=== PATIENT | female | born 1950 | race Caucasian/White ===

== ENCOUNTER 2019-02-11 10:20 | Inpatient (IN) | payer MEDICARE, SELFPAY ==
[2019-01-28 12:44] VITALS: BMI 29.0
[2019-02-11] VITALS (18 sets, daily range): BP systolic 105–145; BP diastolic 50–77; PULSE 62–82; RESP 9–17; TEMP 36.1–36.9; O2SAT 90–100; BMI 29.0
--- NOTE | 2019-02-11 | DI.RAD.S_ITS ---
PROCEDURE: XR LUMBAR SPINE 2-3V INDICATIONS: L4-5,5-S1 TLIF TECHNIQUE: 2 views of the lumbar spine were acquired. COMPARISON: None. FINDINGS: Bones: Immediate postoperative evaluation showing transverse pedicle screws and vertical fixation rods spanning the lower lumbosacral spine from L4-S1, with interbody disc cage prosthesis device is seen at L4-5 and L5-S1. Soft tissues: Overlying bowel gas pattern is normal. No suspicious soft tissue calcifications. IMPRESSION: Normal alignment established after L4-S1 bilateral placement of transverse pedicle screws and vertical fixation rods with interbody disc prosthesis device is placed at the intervening 2 levels as described. Dictated by: Catracho Nixon M.D. on 02/11/2019 at 16:26 Approved by: Catracho Nixon M.D. on 02/11/2019 at 16:28
[2019-02-11] MEDS: LACTATED RINGERS 1,000 ML 42 ML IV ×2 (10:30→13:50)
--- NOTE | 2019-02-11 11:29 | PM.PREOP ---
Pre-operative Note Interval Note History & Physical reviewed/Exam performed by Physician: Yes Changes to H&P: No
[2019-02-11] MEDS: CEFAZOLIN 2 GM/100 ML FROZ.PIGGY IV ×2 (12:11→19:59)
[2019-02-11] MEDS: BUPIVACAINE 0.25% W/ EPI 30 ML VIAL INJ (12:45)
[2019-02-11] MEDS: BUPIVACAINE LIPOSOME 266 MG/20 ML VIAL INJ (12:46)
--- NOTE | 2019-02-11 12:50 | SUR.OPER ---
Prone on spine table, head in foam head support, padded chest and pelvic supports, gel pad at knees, lower legs supported by pillows; nipples, genitalia and toes free of pressure, arms secured on foam padded arm boards at <90 degrees abduction. Tape over blanket at thigh secured to table.
--- NOTE | 2019-02-11 16:06 | PM.OP.1 ---
Operative Date/Time/Diagnoses Date of procedure: 02/11/19 Time of procedure: 11:57 Pre-op diagnosis: 1. L4-5, L5-S1 post laminectomy syndrome 2. L4-5, L5-S1 spinal stenosis 3. L4-5, L5-S1 spondylosis with radiculopathy Procedure & Clinicians Procedure: 1. L4-5, L5-S1 Postero-lateral and posterior interbody fusion 2. L4-5, L5-S1 interbody cage placement. 3. L4-5, L5-S1 decompressive laminectomy with bilateral facetecomies 4. L4-5, L5-S1 Posterior segmental instrumentation 5. Morgan of bone marrow from iliac crest 6. Utilization of microsurgical technique and operating microscope Same procedure as scheduled: Yes Indications: Patient has been having chronic back pain and worsening lumbar radiculopathy. Patient failed multiple conservative management with worsening pain weakness and numbness in her lower extremity. Patient has been having difficulty performing activity of daily living. After discussing risks benefits of treatment options, patient elected proceed with surgery. Surgeon: Nithin Nuñez Employee'S Representative: Padmaja Baron Anesthesia Type: General Operative Notes Closure Type: primary Specimen(s): none sent Prosthetic devices, grafts, tissues, transplants, or devices: Globus revolve, Rise cage Applied: catheter Estimated Blood Loss (mL): 50 Blood products transfused: none Procedure in detail: Patient was seen in the preoperative area. Risks and benefits of the surgery was discussed with the patient. Informed consent was obtained from the patient and placed in the chart. Surgical site was marked. Patient was taken to the operative room. General anesthesia was administered. Prophylactic antibiotic was given to the patient less than 30 min before the incision was made. Patient was placed into a prone position on the Vic table. Patient's back was then prepped and draped in the sterile fashion. Time-out was performed at this time. Using AP and lateral C-arm imaging the interval between L4-S1 was identified and marked on patient's back. A 2 inch incision 2 in from midline was made on the right side first. The fascia was incised in line with skin incision. Globus MARS retractors was placed inside the incision and docked onto the L4 and L5 lamina. Using microsurgical technique and operating microscope, a L4 and L5 laminectomy and L4-5 L5-S1 facetectomy was performed using a Kerrison rongeur. During the process of decompression more than 75% of bilateral L4-5 L5-S1 facets were removed in order to decompress the spinal canal and the lateral recess. The L4-5 L5-S1 level was grossly unstable after the decompression was completed and requiring the fusion procedure. Patient has significant amount of epidural scarring from prior laminectomy which was carefully debrided during the process of decompression The disc space at L4-5, L5-S1 was identified. And a total diskectomy was performed at L4-5, L5-S1 level. The endplates were decorticated using a rasp and shaver. The total diskectomy and decortication was performed at L4-5, L5-S1 level in order to to accomplish a L4-5, L5-S1 fusion. The local bone from the laminectomy and facetectomy was saved for local bone grafting. After the total diskectomy and decortication was completed, Bio4 bone graft material was combined with local bone that was harvested earlier. At this time, a separate skin is incision was made over the iliac crest. A Jamshidi needle was inserted into the iliac crest through a separate skin incision. 5 cc of bone marrow aspiration was obtained through the separate skin incision using a Jamshidi needle from the iliac crest. The bone marrow aspiration was combined with local bone and the Bio4 bone grafting material. The bone grafting material was placed into the L4-5, L5-S1 interbody space along with two cages, one expandable cage at each level. The cages were expanded to their maximum height using the torque limiting screwdriver. At this time a mirror image incision was made on the left side. The fascia was incised in line with the skin incision. Globus MARS retractor was inserted and docked onto the L4-5, L5-S1 posterolateral gutter. Using the power drill, posterior-lateral decortication was performed at L4-5, L5-S1 level until bleeding cortical bone was identified. The remaining bone grafting material was placed into the L4-5 L5-S1 posterior lateral gutter he order to accomplish posterolateral fusion at the L4-5 L5-S1 levels. Using the double C-arm technique, pedicle screws were placed into the L4, L5, S1 pedicles bilaterally. This was done by placing the Jamshidi needle into the pedicles, then placing the guidewires over the Jamshidi needle, and finally placing the cannulated screws over the guidewires bilaterally. After the pedicle screws were placed, 2 titanium rods was locked into the heads of the pedicle screws using locking caps and torque limiting screwdriver. Total 6 pedicles screws were placed. After all the hardware was placed, and confirmed with AP and lateral C-arm imaging, the wound was then irrigated with sterile normal saline and packed with Ray-Sommer gauze for 3 min to accomplish hemostasis. After the gauze was removed the deep fascia was closed with #1 Vicryl suture. The subcutaneous layer was closed with 2-0 Vicryl. The skin was closed with skin olivia. Patient tolerated the procedure well. There were no complications. Complications: none Post-operative Condition: stable Disposition: PACU Plan for aftercare: Admit in inpatient hospital
[2019-02-11] MEDS: HYDROMORPHONE 2 MG INJ 0.5 MG IV ×3 (16:20→16:38)
[2019-02-11] MEDS: fentaNYL 100 MCG/2 ML INJ 50 MCG IV ×2 (16:41→16:46)
[2019-02-11] MEDS: LORazepam 2 MG/ML INJ 0.25 MG IV (17:07)
--- NOTE | 2019-02-11 18:00 | SUR.PHASEI ---
Late entry: Pt entered PACU, IV to R arm infiltrated, multiple sticks to get working IV. Pt initially in lots of pain, medicated with fentanyl, dilaudid and ativan. Pt comfortable on discharge to acute care. Transported up on room air and left in stable condition. Dressing to back c/d/i
[2019-02-11] MEDS: HYDROMORPHONE 1 MG INJ 0.5 MG IV (18:03)
[2019-02-11] MEDS: ACETAMINOPHEN 325 MG TABLET 650 MG PO (18:03)
[2019-02-11] MEDS: hydrOXYzine pamoate 25 MG CAPSULE PO (18:03)
[2019-02-11] MEDS: SODIUM CHLORIDE 0.9% 1,000 ML 100 ML IV (18:04)
[2019-02-11] MEDS: OXYCODONE IR 5 MG TABLET 10 MG PO ×2 (18:41→21:54)
[2019-02-11] MEDS: ONDANSETRON 4 MG/2 ML INJ IV (18:42)
[2019-02-11] MEDS: HYDROMORPHONE 0.5 MG INJ IV (19:58)
[2019-02-11] MEDS: LOSARTAN 50 MG TABLET 100 MG PO (20:37)
[2019-02-11] MEDS: CARVEDILOL 12.5 MG TABLET PO (20:38)
[2019-02-11] MEDS: DOCUSATE 100 MG CAPSULE PO (20:38)
[2019-02-11] MEDS: ATORVASTATIN 20 MG TABLET 40 MG PO (20:38)
[2019-02-11] MEDS: SENNOSIDES 8.6 MG TABLET 17.2 MG PO (20:39)
[2019-02-11] MEDS: METFORMIN HCL 500 MG TABLET 1000 MG PO (20:39)
--- NOTE | 2019-02-11 21:33 | PC.NURSE ---
Pt has been uncomfortable since arrival on the unit, have tried numerous positions, best has been supine. She has been able to eat and drink, voiding clear yellow, and is able to sleep. Tolerates ABOs well.
[2019-02-12] MEDS: OXYCODONE IR 5 MG TABLET 10 MG PO ×4 (01:42→12:17)
[2019-02-12 04:32] VITALS: BP 124/85; PULSE 74; RESP 16; TEMP 37.1; O2SAT 96
[2019-02-12] MEDS: CEFAZOLIN 2 GM/100 ML FROZ.PIGGY IV (04:53)
[2019-02-12 06:40] LABS: Hematocrit 32.3 % (36-46); Hemoglobin 10.5 g/dL (12.0-16.0)
--- NOTE | 2019-02-12 07:42 | PM.PNPO.1 ---
Subjective Subjective Date Patient Seen: 02/12/19 Time Patient Seen: 07:42 Interval history: POD 1 s/p L4-S1 TLIF with Dr. Nuñez. Patient's pain was reasonably controlled with oxycodone last night she did know it does make her sleepy. She has a Owen catheter in place. She is diabetic with a blood sugar 112. She has not been up with physical therapy yet. Exam Vital Signs (past 8 hours): - 02/12/19 04:32 Temperature 98.7 F Pulse Rate 74 Respiratory Rate 16 Blood Pressure 124/85 Pulse Oximetry 96 Oxygen Delivery Method Room Air Oxygen Flow Rate 2 Narrative Exam Narrative: Patient lying in bed in no acute distress. She is alert orient x3. Calves are soft, compressible, nontender bilaterally. Sensation intact to light touch throughout bilateral extremities. Catheter in place. Pulses are symmetrical. Objective Labs Result Diagrams: 02/12/19 06:00 Labs: Laboratory Results - last 24 hr 02/12/19 06:00 Hgb 10.5 L Hct 32.3 L Assessment & Plan Post-op Postoperative Procedures: Procedures Operation Date: 02/11/19 12:15 Actual Procedures Side Surgeon p L4-5, L5-S1 Transforaminal lumbar interbody fusion with posterior instrumentation Nithin Nuñez MD Patient will mobilize with physical therapy today. No excessive bending, lifting, or twisting. Cover site dressing will be applied prior to discharge. Owen catheter will be removed this morning. If she has adequate pain control, and voiding on her own, and mobilizing safely she could go home tonight or tomorrow morning.
[2019-02-12 07:45] VITALS: BP 118/80; PULSE 79; RESP 16; TEMP 37.3; O2SAT 95
[2019-02-12] MEDS: AMLODIPINE 5 MG TABLET 10 MG PO (08:29)
[2019-02-12] MEDS: CARVEDILOL 12.5 MG TABLET PO (08:30)
[2019-02-12] MEDS: METFORMIN HCL 500 MG TABLET 1000 MG PO (08:31)
[2019-02-12] MEDS: DOCUSATE 100 MG CAPSULE PO (08:31)
--- NOTE | 2019-02-12 10:00 | PC.NURSE ---
Addendum entered by Jennifer Suazo R.N. 02/12/19 13:55: DC - when spouse arrived, reviewed dc instructions, pt declined any tylenol or vistaril for the trip home, scripts provided, belongings gathered, including cell phone and tablet, clothing, tsf to and escorted to spouse's car by automatic brine mixer operator. Addendum entered by Jennifer Suazo R.N. 02/12/19 13:13: DC/INTEG - removed barrier dsg, parallel stapled incisions, small steristrips intact, no redness or drainage, replaced with coversite dsg, Bety OT in to assist pt with adl/clothing. Addendum entered by Jennifer Suazo R.N. 02/12/19 12:04: PAIN - after seated chair, automatic brine mixer operator assisted back bed, states pain incr to 7 on scale 0/10, discussed medications, dosages, timing and given 0.5mg iv dilaudid with good result, pain 4 on scale 0/10, later ret to chair for lunch. Original Note: AM NOTE - pt is alert, states back discomfort 4-5 on scale 0/10, Phyllis ZURITA in this am and new order rec'd for osorio dc, balloon deflated and dc'd w/o difficulty, pt states hx urine incontinence and pads and underwear provided, log roll to dangle position, barrier dsg w/small qty shadow drainage, denies dizziness and stood and tsf to chair for breakfast, no nausea, 10mg oxycodone given, states hx r leg discomfort resolved after surgery.
--- NOTE | 2019-02-12 10:28 | PT.IIE ---
Current Diagnoses Other spondylosis with radiculopathy, lumbosacral region (02/11/19) Spinal stenosis, lumbar region without neurogenic claudication (02/11/19) Postlaminectomy syndrome, not elsewhere classified (02/11/19) Surgery Performed Operation Date: 02/11/19 12:15 Actual Procedures p L4-5, L5-S1 Transforaminal lumbar interbody fusion with posterior instrumentation - Nithin Nuñez MD Surgical History (Last Updated 01/28/19 @ 13:23 by Janice Rowan RN) History of 2 sections (Acute) History of bilateral total hip arthroplasty (Acute) History of bladder surgery (Acute) Hx of appendectomy (Acute ~1970) Hx of bilateral cataract extraction (Acute) Hx of cardiac catheterization (Acute) Hx of cholecystectomy (Acute) Hx of laminectomy (Acute ~1987) Hx of shoulder surgery (Acute) Hx of tonsillectomy (Acute) Medical History (Last Updated 01/28/19 @ 13:23 by Janice Rowan RN) CAD (coronary artery disease) (Acute 09/11/16) Cardiac arrest (Acute) DDD (degenerative disc disease) (Acute) Diabetes (Acute) Diverticulosis (Acute) Edema (Acute) Former smoker (Acute) H/O: hysterectomy (Acute ~1973) HTN (hypertension) (Acute) Incontinence (Acute) Myocardial infarction (Acute 10/08/16) Osteoarthritis (Acute) Osteoporosis (Acute) Right hip pain (Acute) Severe vertigo (Acute) Sinusitis (Acute) Small bowel obstruction (Acute 03/15/14) Physical Therapy Inpatient Evaluation/Re-Eval M1 PT/OT-IP Prior Functional Status Start: 02/12/19 08:20 Freq: NEEDED Status: Active Protocol: Document 02/12/19 08:55 (Rec: 02/12/19 10:27 [email or web address]) Medical Review Prior Functional Status Medical History Reviewed Yes Diet/Fluid Consistency Regular Communication no deficits noted. Able to make needs known Mobility and Gait Pt states she is independent for home and community mobility. She did use a SPC for long distance walk sometimes. She has difficulty standing/ bending over for a long period of time such as dish washing who required to take intermittent breaks in between. Activities of Daily Living and IADL's independent with ADLs and IADLs. Able to drive. Social History Household Members spouse,family Living Arrangements House Number of Floors (Floors) Two Floors Number of Stairs To Enter/Railing? ramp to enter Home Environment Standard Height Toilet,Tub/ Shower Home Equipment Front Wheel Walker,Four Wheel Walker,Straight Cane,Manual Wheelchair,Raised Toilet Seat w/Armrests,Tub Transfer Bench, Hospital Bed,Grab Bars Near Toilet,Grab Bars In Shower Employment Status Retired Additional Social History Comment Pt lives with her , disabled brother in a2 story house. Her son lives in a trailer on the driveway. Pt primarily stays on main floor. Pt states her is a below knee amputee but very independent without using AD with his prosthetics on. Pt had 2 back surgeries and hip replacement before. M2 PT-IP Current Condition Start: 02/12/19 08:20 Freq: NEEDED Status: Active Protocol: Document 02/12/19 08:55 HH (Rec: 02/12/19 10:27 [email or web address]) Physical Therapy Current Condition Current Condition Evaluation Date 02/12/19 Treatment Diagnosis L4-S1 TLIF, difficulty in walking, R leg pain. Onset Date 02/11/19 Precautions Lumbar Precautions Log Roll,No Twisting,Limit Bending,Lifting Restriction of 10 lbs,Gait Belt above Incisional Area Weight Bearing Status Weight Bearing Status Weight Bear as Tolerated M3 PT-IP Subjective Start: 02/12/19 08:20 Freq: NEEDED Status: Active Protocol: Document 02/12/19 08:55 HH (Rec: 02/12/19 10:27 [email or web address]) Subjective Physical Therapy Visit Type Type Initial Evaluation Visit Start Time 08:55 Visit Stop Time 09:17 Total Visit Minutes 22 Number of HELICOPTER PILOT INSTRUCTOR Visits 0 Physical Therapy Visit Comments Patient Comments I want to go home today. Patient Goals to return home with her . Therapy Pain Assessment Pain When Pain Assessed During Mobility Pain Present Pain Present Pain Reported Location back Scale Used Numeric (1 - 10) Description Acute Pain Management Techniques Timing of Activity with Medications M4 PT-IP Mobility and Gait Start: 02/12/19 08:20 Freq: NEEDED Status: Active Protocol: Document 02/12/19 08:55 HH (Rec: 02/12/19 10:27 [email or web address]) PT-Bed Mobility Assessment Rolling Type of Rolling Log Rolling,Roll to Right Level of Assist Independent Supine to Sit Supine to Sit Independent Sit to Supine Sit to Supine Independent Scooting Scooting to Edge of Bed Independent Scooting Up and Down in Bed Independent PT-Transfer Assessment Sit to and From Stand Sit to and from Stand Standby Assistance,Use of Upper Extremities Equipment Transfer Assistive Device Gait Belt,Front Wheeled Walker Transfers Transfer Destination Bed,Chair,Toilet Transfer Technique Stand Step Pivot Transfer Ability Level of Assist Standby Assistance Comments Mobility Comments Pt was in bed upon assessment. She was able to recall all 3/ 3 post op precautions. She used log roll and sidelying push up to sit EOB independently. She was able to transfers by taking small steps to avoid excessive bending and twisting. She overall appears very safe and cautious. Gait Assessment Gait Gait Assistance Required: Standby Assistance Distance (Feet) 220 Able to Maintain Weight Bearing Status Yes During Gait Assistive Devices Assistive Device Gait Belt,Front Wheeled Walker Orthotic/Prosthetic Devices or Brace: No Gait Deviations General Gait Pattern Within Normal Limits,Decreased Stride Length,Decreased Feet Clearance Factors Limiting Gait Function Factors Limiting Gait Function Decreased Activity Tolerance, Decreased Strength,Limited Range of Motion,Pain Comments Gait Comments Pt amb from room to hallway with FWW SBA. She appears very safe and normal. Reports I currently have no R leg pain at all and i am walking very good and normal. Pt denies weakness or any discomfort. Pt returned to bed and rest in sidelying position with call light within reach post PT. PT-Balance Assessment Sitting Balance and Reactions Static Sitting Balance Ability Normal Dynamic Sitting Balance Ability Normal Standing Balance and Reactions Static Standing Balance Ability Normal Dynamic Standing Balance Ability Normal M5 PT-IP Objective Assessments Start: 02/12/19 08:20 Freq: NEEDED Status: Active Protocol: Document 02/12/19 08:55 (Rec: 02/12/19 10:27 [email or web address]) Orientation Orientation/Cognition Level of Alertness Alert Orientation Name,Age,Birthday,Month,Date, Year,Day of Week,Place, Situation Language Function Ability No Deficits Noted Safety Awareness Understands Safety Issues Memory Description No Deficits Noted Gross Range of Motion Upper Extremity ROM Assessment Within Functional Limits Lower Extremity ROM Assessment Within Functional Limits Strength Upper Extremity Strength Assessment Within Functional Limits Lower Extremity Strength Assessment Within Functional Limits Coordination Assessment Gross Coordination Gross Coordination WNL Sensation Assessment Sensation Gross Sensation WNL Muscle Tone Muscle Tone WNL Yes M6 PT-IP Treatment Start: 02/12/19 08:20 Freq: NEEDED Status: Active Protocol: Document 02/12/19 08:55 (Rec: 02/12/19 10:27 [email or web address]) Physical Therapy Treatment Exercises Exercises Ankle Pumps,Gluteal Sets,Quad Sets,Heel Slides,Straight Leg Raises,Supine Hip Abduction Education Education Provided Precautions,Weight Bearing Status,Post-Op Packet,Safety M7 PT-IP Assessment and Plan Start: 02/12/19 08:20 Freq: NEEDED Status: Active Protocol: Document 02/12/19 08:55 (Rec: 02/12/19 10:27 [email or web address]) PT Summary Assessment and Plan Potential Rehabilitation Potential Excellent Status of Condition at Evaluation Stable Summary Impairments Pain,ROM,Strength,Balance,Bed Mobility,Transfers,Gait, Activity Tolerance Progress Towards Goals Safe For Discharge Assessment Summary Pt is a low complexity whose s /p L4-S1 TLIF since yesterday. Upon assessment, Pt also did not c/o her chronic R leg pain anymore and pt's mobility appears to be at baseline who is well aware of all her post op precautions. She did not need reminders during mobility assessment and able to demonstrates safe transfers and bed mobility techniques possibly due to her previous back surgeries. She also has adequate DME at home and family support. She is safe to be d/c with family assistance at this point. Frequency of Treatment Frequency Of Treatment Discharge Recommendations To Nursing Amount of Assist Needed Standby Assistance Discharge Recommendations PT Discharge Recommendations Home with Assistance
[2019-02-12] MEDS: HYDROMORPHONE 0.5 MG INJ IV (11:15)
[2019-02-12 11:30] VITALS: BP 105/48; PULSE 76; RESP 16; TEMP 37.2; O2SAT 94
--- NOTE | 2019-02-12 13:28 | OT.IP.EVAL ---
Current Diagnoses Other spondylosis with radiculopathy, lumbosacral region (02/11/19) Spinal stenosis, lumbar region without neurogenic claudication (02/11/19) Postlaminectomy syndrome, not elsewhere classified (02/11/19) Surgery Performed Operation Date: 02/11/19 12:15 Actual Procedures p L4-5, L5-S1 Transforaminal lumbar interbody fusion with posterior instrumentation - Nithin Nuñez MD Past Medical History (Last Updated 01/28/19 @ 13:23 by Janice Rowan RN) CAD (coronary artery disease) (Acute 09/11/16) Cardiac arrest (Acute) DDD (degenerative disc disease) (Acute) Diabetes (Acute) Diverticulosis (Acute) Edema (Acute) Former smoker (Acute) H/O: hysterectomy (Acute ~1973) HTN (hypertension) (Acute) Incontinence (Acute) Myocardial infarction (Acute 10/08/16) Osteoarthritis (Acute) Osteoporosis (Acute) Right hip pain (Acute) Severe vertigo (Acute) Sinusitis (Acute) Small bowel obstruction (Acute 03/15/14) Surgical History (Last Updated 01/28/19 @ 13:23 by Janice Rowan RN) History of 2 sections (Acute) History of bilateral total hip arthroplasty (Acute) History of bladder surgery (Acute) Hx of appendectomy (Acute ~1970) Hx of bilateral cataract extraction (Acute) Hx of cardiac catheterization (Acute) Hx of cholecystectomy (Acute) Hx of laminectomy (Acute ~1987) Hx of shoulder surgery (Acute) Hx of tonsillectomy (Acute) Occupational Therapy Inpatient Evaluation/Re-Eval M1 PT/OT-IP Prior Functional Status Start: 02/12/19 08:20 Freq: NEEDED Status: Active Protocol: Document 02/12/19 13:28 EHSAN (Rec: 02/12/19 16:28 EHSAN [id number]) Medical Review Prior Functional Status Medical History Reviewed Yes Diet/Fluid Consistency Regular Communication WNL Mobility and Gait Pt states she is independent with home and community mobility. She did use a SPC for long distance walk at times. She has difficulty standing/ bending over for a long period of time e.g. for dish washing and needed to take intermittent breaks. Activities of Daily Living and IADL's Pt independent with ADLs and IADLs. Able to drive. She and share accounting representative . Prior Functional Level (Other details) Pt's is LE amputee but is independent with prosthesis. Social History Household Members spouse,family Living Arrangements House Number of Floors (Floors) Two Floors Number of Stairs To Enter/Railing? ramp to enter Home Environment Standard Height Toilet,Tub/ Shower,Ramp Home Equipment Front Wheel Walker,Four Wheel Walker,Straight Cane,Manual Wheelchair,Raised Toilet Seat w/Armrests,Tub Transfer Bench, Hand Held Shower,Long Handled Shoe Horn,Ground Operations Superintendent,Hospital Bed ,Grab Bars Near Toilet,Grab Bars In Shower Employment Status Retired Additional Social History Comment Pt lives with her and disabled brother in a 2 story house. Her son lives in a trailer on the driveway. Pt primarily stays on main floor. Pt states her is a below knee amputee but very independent without using AD with his prosthetic on. Pt has had 2 previous back surgeries and B hip replacements. M2 OT-IP Current Condition Start: 02/12/19 16:17 Freq: Status: Active Protocol: Document 02/12/19 13:28 PJ (Rec: 02/12/19 16:28 [facility] [id number]) Occupational Therapy Current Condition Current Condition Evaluation Date 02/12/19 Treatment Diagnosis decr'd self care, functional mobility s/p L4-S1 lami, PLIF Diagnosis Onset Date 02/11/19 Post Operative Precautions Lumbar Precautions Log Roll,No Twisting,Limit Bending,Lifting Restriction of 10 lbs,Gait Belt above Incisional Area M3 OT- IP Subjective and Pain Start: 02/12/19 16:17 Freq: Status: Active Protocol: Document 02/12/19 13:28 PJNathanael (Rec: 02/12/19 16:28 [facility] [id number]) OT- Subjective Occupational Therapy Visit Type Type Initial Evaluation Visit Start Time 13:05 Visit Stop Time 13:28 Total Visit Minutes 23 Occupational Therapy Visit Comments Patient Comments I have had back surgery before and I have all the equipment I need. Patient/Caregiver Goals to go home today OT Pain Assessment Pain When Pain Assessed After Treatment Pain Present Pain Present Pain Reported Location back Intensity 4 Scale Used Numeric (1 - 10) Description Aching,Acute Pain Behaviors Guarding Management Techniques Distraction,Re-positioning, Timing of Activity with Medications M4 OT- IP ADL's Start: 02/12/19 16:17 Freq: Status: Active Protocol: Document 02/12/19 13:28 PJM (Rec: 02/12/19 16:28 [facility] [id number]) OT [id number] General Evaluation Self-Feeding Ability Independent OT ADL-Grooming General Evaluation Grooming Ability Independent Comments OT Grooming Comments standing at sink OT ADL-Oral Care Comments Oral Care Comments standing at sink OT ADL-Dressing General Eval Upper Body Dressing Ability Independent Areas Needing Assistance Pull-Over Shirt,Underpants/ Brief Comments OT Dressing Comments pt states she never wears socks, wears slip on sandals OT ADL-Toileting General Evaluation Toileting Ability Independent Areas Needing Assistance Manage Clothing,Perform Perineal Hygiene OT ADL-Bathing Comments OT Bathing Comments pt declined to shower here; she has necessary bathroom safety equipt and can assist PRN at home; provided eduation re: body mechanics M5 OT- IP IADL's Start: 02/12/19 16:17 Freq: Status: Active Protocol: Document 02/12/19 13:28 PJ (Rec: 02/12/19 16:28 [facility] [id number]) OT-Instrumental Activities of Daily Living Deficits IADL Deficits Identified Deficits Home Safety Awareness Awareness of Need for Assistance at Home Good Awareness Ability to Problem Solve Emergency Able to Problem Solve Situations Medication Management Medication Management No Deficits Identified Money Management Money Management No Deficits Identified Meal Preparation Meal Preparation Caregiver Provides Assist Meal Preparation Comments to assist until pt able Aviation Consultant Aviation Consultant Comments to assist until pt able Driving Driving Comments to assist until pt able M6 OT- IP Functional Cognition Start: 02/12/19 16:17 Freq: Status: Active Protocol: Document 02/12/19 13:28 PJ (Rec: 02/12/19 16:28 [facility] [id number]) Cognitive Factors Limiting Selfcare Function Cognitive Ability Level of Alertness Alert Patient Orientation Name,Age,Birthday,Month,Date, Year,Day of Week,Place, Situation Attention Span Ability Capable of Focused Attention, Capable of Sustained Attention Ability to Follow Commands Able to Follow One Step Commands,Able to Follow Multi- Step Commands Memory Description No Deficits Noted Safety Awareness No Deficits Noted Problem Solving Ability No deficits Noted Executive Function Ability No Deficits Noted Cognitive Comments Cognitive Assessment Comments Pt recalls 3/3 lumbar spine precautions and demonstrates understanding during self care tasks. OT- Vision and Hearing OT- Hearing Assessment OT- Hearing Assessment WFL M7 OT- IP Mobility and Balance Start: 02/12/19 16:17 Freq: Status: Active Protocol: Document 02/12/19 13:28 PJ (Rec: 02/12/19 16:28 [facility] [id number]) OT- Bed Mobility Assessment Rolling Type of Rolling Roll to Left Level of Assistance Independent Supine to Sit Supine to Sit Assist Independent Scooting Scooting to Edge of Bed Independent OT-Transfer Assessment Sit to and From Stand Sit to and from Stand Independent Transfers Transfer Ability Independent Technique Transfer Destination Chair,Toilet Devices Transfer Assistive Devices Gait Belt,Front Wheeled Walker OT- Gait Assessment Gait Gait Assistance Required: Standby Assistance Distance (Feet) 25 Assistive Devices Assistive Device Gait Belt,Large Based Quad Cane OT- Balance Assessment Sitting Balance and Reactions Static Sitting Balance Ability Good Dynamic Sitting Balance Ability Good Standing Balance and Reactions Static Standing Balance Ability Good Dynamic Standing Balance Ability Good M8 OT- IP Objective Assessments Start: 02/12/19 16:17 Freq: Status: Active Protocol: Document 02/12/19 13:28 PJ (Rec: 02/12/19 16:28 [facility] [id number]) OT Gross Range of Motion Upper Extremity Range of Motion Assessment Within Functional Limits OT Strength Upper Extremity Strength Assessment Within Functional Limits Hand Medicare Biller Strength Hand Dominance Right OT- Coordination Assessment Comments Coordination Comments BUE WFL OT-Muscle Tone Assessment Muscle Tone WNL Yes OT Sensation Assessment Comments Summary Comments BUE WNL Edema Edema Absent M9 OT- IP Assessment and Plan Start: 02/12/19 16:17 Freq: Status: Active Protocol: Document 02/12/19 13:28 PJ (Rec: 02/12/19 16:28 [facility] [id number]) OT Summary Assessment and Plan Potential Rehabilitation Potential Good Analytic Complexity at Evaluation Low Summary Progress Towards Goals Safe For Discharge Assessment Summary Low complexity OT assessment completed and brief education provided re: lumbar spine precautions and adapted ADL techniques. Pt has had previous spine surgery and is familiar with information provided. She is moving well with FWW in room and plans to d/c home today with 24 hr assist from supportive . No further OT services needed. Frequency of Treatment Frequency Of Treatment Discharge Discharge Recommendations OT Discharge Recommendations Home with Assistance Home Equipment Needs none
--- NOTE | 2019-02-13 14:56 | CM.IDA ---
Addendum entered by DEBORA Zambrano 02/13/19 15:01: Reviewed chart; pt in the ER currently w/complaint of pain 9 out of 10, unsure if she will be readmitted or sent home w/ f/u through Ortho. AURE Original Note: Initial DCP Assessment Note/Late Entry: Pt is a 69 yo female, resident of [place], now POD#1 from spinal surgery w/ Dr Nuñez PCP: Reid Santos Payer: [employer] Medicare Reviewed chart, pt discussed in multidisciplinary rounds this morning. Therapy has cleared pt for return home w/family to assist and pt has planned for home, DC order from [facility] has already been initiated this morning. No needs expected from DC planning team although will remain available in case this changes today. DEBORA Zambrano
== END 2019-02-12 13:58 | disposition home or self-care (01) | DRG 455 ==
PROVIDERS: Admitting Provider Orthopaedic Surgery Orthopaedic Surgery of the Spine; PCP Internal Medicine; Visit Provider Orthopaedic Surgery Orthopaedic Surgery of the Spine
PROC: 0SG00AJ Fusion of Lumbar Vertebral Joint with Interbody Fusion Device, Posterior Approach, Anterior Column, Open Approach (ICD-10-PCS; principal; 2019-02-11 12:15)
DX: M48.061 Spinal stenosis, lumbar region without neurogenic claudication (principal); M96.1 Postlaminectomy syndrome, not elsewhere classified; M47.27 Other spondylosis with radiculopathy, lumbosacral region; I10 Essential (primary) hypertension; M81.0 Age-related osteoporosis without current pathological fracture; E11.9 Type 2 diabetes mellitus without complications; F17.210 Nicotine dependence, cigarettes, uncomplicated; I25.10 Atherosclerotic heart disease of native coronary artery without angina pectoris; K21.9 Gastro-esophageal reflux disease without esophagitis; M48.07 Spinal stenosis, lumbosacral region; Z79.84 Long term (current) use of oral hypoglycemic drugs
CPT/HCPCS: 36415; 72100; 76000; 85014; 85018; 97161; 97165; C1776; C9290; J0330; J0690; J1100; J1170; J2060; J2405; J2704; J3010

== ENCOUNTER 2019-02-13 13:38 | Emergency (ER) | payer MEDICARE, SELFPAY ==
[2019-02-11 18:21] VITALS: BMI 29.0
[2019-02-13 13:58] VITALS: BP 132/66; PULSE 87; RESP 16; TEMP 37.6; O2SAT 98; BMI 26.6
--- NOTE | 2019-02-13 14:00 | ED.BACK ---
HPI - Back Pain/Injury <Emily HookerEAGLE - Last Filed: 02/13/19 21:49> General Chief Complaint: Back Pain/Injury Stated Complaint: Cannot move, back pain Time Seen by Provider: 02/13/19 13:44 Source: patient Mode of arrival: ambulatory Limitations: no limitations History of Present Illness HPI Narrative: 69-year-old female who underwent laminectomy on 02/11/[address] Nuñez, presents emergency department today complaining of increased back pain around the surgical site since she left the hospital. She states the pain is a 9/10 that is worse with movement and better with rest. She was given oxycodone 5 mg (takes 2-4 pills a day) and hydroxyzine 25 mg (takes about 2 a day). Patient states she is unsure her follow-up appointment is as she was told ?they will call ?, additionally, she did not contact Dr. Nuñez today before coming in. She denies any fevers, chest pain, shortness of breath, leg weakness, abdominal pain, nausea, vomiting, saddle paresthesias, loss of bowel or bladder function, or falls. She does states that she urinates in her pants her pants a lot as she cannot get her pants down fast enough due to pain. MD Complaint: back pain Related Data Home Medications Medication Instructions Recorded Confirmed amlodipine 10 mg PO DAILY 01/28/19 02/13/19 aspirin 81 mg PO DAILY 01/28/19 02/13/19 atorvastatin 40 mg PO BEDTIME 01/28/19 02/13/19 carvedilol 12.5 mg PO BID 01/28/19 02/13/19 hydrochlorothiazide 25 mg PO DAILY 01/28/19 02/13/19 losartan 100 mg PO BEDTIME 01/28/19 02/13/19 metformin 1,000 mg PO BID 01/28/19 02/13/19 Previous Rx's Medication Instructions Recorded acetaminophen 650 mg PO Q6HR PRN #60 tab 02/12/19 docusate sodium [DOK] 100 mg PO BID #60 cap 02/12/19 hydroxyzine HCl 25 mg PO Q6-8H PRN #30 tab 02/12/19 oxycodone 5 mg PO Q4-6H PRN #60 cap 02/12/19 oxycodone-acetaminophen [Percocet] 2 tab PO Q4-6H PRN #10 tab 02/13/19 Allergies Allergy/AdvReac Type Severity Reaction Status Date / Time No Known Drug Allergies Allergy Verified 02/13/19 13:58 Review of Systems <EAGLE Damian - Last Filed: 02/13/19 21:49> Review of Systems Narrative: REVIEW OF SYSTEMS: GENERAL: Denies fever or chills. HENT: No head trauma. EYES: No double vision or vision loss. CARDIOVASCULAR: No chest pain or syncope. RESPIRATORY: No shortness of breath or cough. GASTROINTESTINAL: No nausea, vomiting, diarrhea, or constipation. GENITOURINARY: No flank pain or dysuria. MUSCULOSKELETAL: Complains of back pain, see HPI. INTEGUMENTARY: No rash, lesions, or pruritus. NEURO: No numbness, tingling. PSYCH: No behavior or mood changes. PFSH <EAGLE Damian - Last Filed: 02/13/19 21:49> Medical History CAD (coronary artery disease) (Acute 09/11/16) Cardiac arrest (Acute) DDD (degenerative disc disease) (Acute) Diabetes (Acute) Diverticulosis (Acute) Edema (Acute) Former smoker (Acute) H/O: hysterectomy (Acute ~1973) HTN (hypertension) (Acute) Incontinence (Acute) Myocardial infarction (Acute 10/08/16) Osteoarthritis (Acute) Osteoporosis (Acute) Right hip pain (Acute) Severe vertigo (Acute) Sinusitis (Acute) Small bowel obstruction (Acute 03/15/14) Surgical History History of 2 sections (Acute) History of bilateral total hip arthroplasty (Acute) History of bladder surgery (Acute) Hx of appendectomy (Acute ~1970) Hx of bilateral cataract extraction (Acute) Hx of cardiac catheterization (Acute) Hx of cholecystectomy (Acute) Hx of laminectomy (Acute ~1987) Hx of shoulder surgery (Acute) Hx of tonsillectomy (Acute) Social History household members: spouse and family Smoking Status: Former smoker alcohol intake: never Social History household members: spouse and family Smoking Status: Former smoker alcohol intake: never Exam <EAGLE Damian - Last Filed: 02/13/19 21:49> Initial Vital Signs Initial Vital Signs: Vital Signs Temperature 99.6 F 02/13/19 13:58 Pulse Rate 87 02/13/19 13:58 Respiratory Rate 16 02/13/19 13:58 Blood Pressure 132/66 02/13/19 13:58 Pulse Oximetry 98 02/13/19 13:58 PHYSICAL EXAMINATION: GENERAL: Well groomed, alert, and cooperative. Answers questions promptly and appropriately. Vital signs noted. HENT: Normocephalic, atraumatic. EYES: Symmetrical, sclera white, no periorbital swelling. CARDIOVASCULAR: S1 and S2 sounds normal. Regular rate and rhythm, no murmurs, clicks, or bruits. No pedal edema. RESPIRATORY: Normal respiratory rate, trachea midline, airway patent. No stridor, nasal flaring or accessory muscle use. Lungs are clear in all garcia. MUSCULOSKELETAL: To vertical incisions to lumbar area, olivia intact, no erythema or exudate, no excessive swelling noted. Normal gait and coordination. Equal tone and mass bilaterally. Equal strength to lower and upper extremities bilaterally. Patient needed assistance to ambulate as well as get on and off the bed due to pain. Lumbar spinal tenderness noted on palpation this correlates was surgical site. EXTREMITIES: CMS intact. No pedal edema. SKIN: Warm, dry, soft, appropriate color for ethnicity. No lesions, rashes, or wounds. NEURO: Alert and Oriented X 3. No sensory deficits. PSYCH: Appropriate affect and mood. <Sylvia Carpio DO - Last Filed: 02/14/19 08:05> Initial Vital Signs Initial Vital Signs: Vital Signs Temperature 99.6 F 02/13/19 13:58 Pulse Rate 87 02/13/19 13:58 Respiratory Rate 16 02/13/19 13:58 Blood Pressure 132/66 02/13/19 13:58 Pulse Oximetry 98 02/13/19 13:58 Course <EAGLE Damian - Last Filed: 02/13/19 21:49> Course Course Narrative: Patient appeared to presents for pain control. After administration of hydromorphone 1 mg IM, oxycodone 5 mg, patient stated her pain a was reduced. She was able to ambulate around the department, she states she still had pain but it was less severe. Extensive education was given to the patient to call the surgeon in the morning if she continues to have a lot of pain, as well as increased frequency that she is taking her pain medication. Orders Ordered: Discontinued Medications Hydromorphone HCl (Dilaudid) 1 mg IM NOW ONE Stop: 02/13/19 14:07 Last Admin: 02/13/19 14:26 Dose: 1 mg Documented by: FTAOU Oxycodone/Acetaminophen (Percocet 5/325) 1 tab PO NOW ONE Stop: 02/13/19 15:22 Last Admin: 02/13/19 15:59 Dose: 1 tab Documented by: FATOU Consultations Consultation #1: Patient staffed with Dr. Carpio. Vital Signs Vital signs: Vital Signs - 8 hr 02/13/19 13:58 02/13/19 16:42 Temperature 99.6 F Pulse Rate 87 92 H Respiratory Rate 16 16 Blood Pressure 132/66 Blood Pressure [Left Arm] 124/57 L Pulse Oximetry 98 92 <Sylvia Carpio DO - Last Filed: 02/14/19 08:05> Orders Ordered: Discontinued Medications Hydromorphone HCl (Dilaudid) 1 mg IM NOW ONE Stop: 02/13/19 14:07 Last Admin: 02/13/19 14:26 Dose: 1 mg Documented by: FATOU Oxycodone/Acetaminophen (Percocet 5/325) 1 tab PO NOW ONE Stop: 02/13/19 15:22 Last Admin: 02/13/19 15:59 Dose: 1 tab Documented by: FATOU Vital Signs Vital signs: Vital Signs - 8 hr 02/13/19 13:58 02/13/19 16:42 Temperature 99.6 F Pulse Rate 87 92 H Respiratory Rate 16 16 Blood Pressure 132/66 Blood Pressure [Left Arm] 124/57 L Pulse Oximetry 98 92 MDM - Back Pain/Injury <EAGLE Damian - Last Filed: 02/13/19 21:49> Medical Records Attestation: I reviewed the patient's medical records. Lab Data Attestation: I reviewed the patient's lab results. MDM Narrative Medical decision making narrative: Differential includes postop pain (most likely due to onset of pain as leaving hospital, normal interval of taking her pain medication pain, pain consistent with surgical intervention, pain decreased with administration of stronger pain medication), infection (less likely due to lack of erythema around the surgical site, lack of exudate, and lack of systemic symptoms such as fever or tachycardia), spinal abscess (less likely as pain has been consistent since she has left hospital, less likely due to normal neuro examination), cauda equina (less likely due to normal neuro examination, no limb weakness, no saddle paresthesias. Strict return precautions given and follow-up instructions discussed. <Sylvia Carpio, DO - Last Filed: 02/14/19 08:05> [facility] Narrative Medical decision making narrative: Case discussed patient taking pain medication every 6-12 hours which maybe underdosing at such an early stage post-op. Patient site does not appear infected, no other objective signs of infection or other causes of back pain. Plan to adjust dosing regimen, f/u with orthopedic surgery with strict return precautions. Discharge Plan Departure Patient Disposition: Home Clinical Impression: S/P lumbar fusion Back pain Qualifiers: Back pain location: low back pain Chronicity: acute Back pain laterality: bilateral Sciatica presence: without sciatica Qualified Code(s): M54.5 - Low back pain Discharge Date/Time: 02/13/19 17:08 Instructions: DI for Low Back Pain Activity Restrictions/Additional Instructions: Thank you for entrusting me with your care today. As discussed, I prescribed you additional pain medication to take for pain. Please call your surgeon tomorrow morning and schedule a follow-up appointment and update them on your pain. Return to the emergency department if you developed numbness or tingling in her lower extremities, severe headaches, syncope, pelvic numbness or tingling, or incontinence. Prescriptions: New oxycodone-acetaminophen [Percocet] 5-325 mg tablet 2 tab PO Q4-6H PRN (Reason: pain) Qty: 10 RF: 0 No Action atorvastatin 40 mg Tablet 40 mg PO BEDTIME RF: 0 metformin 500 mg Tablet 1,000 mg PO BID RF: 0 carvedilol 12.5 mg Tablet 12.5 mg PO BID RF: 0 aspirin 81 mg Tablet,Delayed Release (Dr/Ec) 81 mg PO DAILY RF: 0 amlodipine 10 mg Tablet 10 mg PO DAILY RF: 0 hydrochlorothiazide 25 mg Tablet 25 mg PO DAILY RF: 0 losartan 100 mg Tablet 100 mg PO BEDTIME RF: 0 docusate sodium [DOK] 100 mg Capsule 100 mg PO BID Qty: 60 RF: 0 oxycodone 5 mg capsule 5 mg PO Q4-6H PRN (Reason: pain) Qty: 60 RF: 0 acetaminophen 325 mg Tablet 650 mg PO Q6HR PRN (Reason: Pain, Mild (1-3)) Qty: 60 RF: 0 hydroxyzine HCl 25 mg tablet 25 mg PO Q6-8H PRN (Reason: muscle spasm) Qty: 30 RF: 1 Referrals: Reid Santos MD [Primary Care Provider] -
[2019-02-13] MEDS: HYDROMORPHONE 1 MG INJ IM (14:26)
[2019-02-13] MEDS: OXYCODONE/ACETAMINOPHEN 5/325 TABLET 1 TAB PO (15:59)
[2019-02-13 16:42] VITALS: BP 124/57; PULSE 92; RESP 16; O2SAT 92
== END 2019-02-13 17:08 | disposition home or self-care (01) ==
PROVIDERS: Emergency Provider Nurse Practitioner; PCP Internal Medicine
DX: G89.18 Other acute postprocedural pain (principal); M54.5 Low back pain
CPT/HCPCS: 96372; 99282; 99283; J1170